=== PATIENT | female | born 1960 | race Two or more races ===

== ENCOUNTER → 2019-07-27 | Emergency (ER) | payer OTHER ==
[~2019-07-27] VITALS: Ht 172.7 cm; Wt 83.9 kg
[~2019-07-27] MED LIST: ALBUTEROL2.5 MG/3 M IH; BUDESONIDE0.5 MG/2 M IH; SYNTHROID75 MCG; ZYNCOF 20-400120 ML PO
== END | disposition home or self-care (01) ==
LOC: ER 00:42
DX: J40 Bronchitis, not specified as acute or chronic (principal)